=== PATIENT | male | born 1980 | race Caucasian/White ===

== ENCOUNTER 2017-02-19 03:17 | Inpatient (IN) | payer MEDICAID, OTHER ==
[~2017-02-19] VITALS: Ht 180.3 cm; Wt 74.0 kg
[2017-02-19 03:35] VITALS: BP 117/65; PULSE 88; RESP 18; TEMP 97.5; O2SAT 98
[2017-02-19] MEDS ORDERED: diphenhydrAMINE HCL 50 MG CAP PO PRN (06:00)
[2017-02-19] MEDS ORDERED: hydrOXYzine HCL 50 MG TAB PO PRN (06:00)
[2017-02-19] MEDS ORDERED: MAGNESIUM HYDROXIDE SUSP 30 ML CUP PO PRN (06:00)
[2017-02-19] MEDS ORDERED: ALUMINUM/MAGNESIUM/SIMETH 30 ML CUP PO PRN (06:00)
[2017-02-19] MEDS ORDERED: diphenhydrAMINE HCL 50 MG/ML VIAL IM PRN (06:00)
[2017-02-19] MEDS: ACETAMINOPHEN 325 MG TAB PO PRN ×2 (08:42→12:15)
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
[2017-02-19] MEDS ORDERED: REMOVE OLD NICOTINE PATCH T-DERMAL SCH (21:00)
[2017-02-20] MEDS ORDERED: NICOTINE 21 MG/24 HR PATCH T-DERMAL SCH (10:00)
== END 2017-02-19 12:45 | disposition home or self-care (01) | DRG 881 ==
LOC: H270 03:30 → EDSTATUS 03:38
PROVIDERS: ADMIT Psychiatry & Neurology Psychiatry; ATTEND Psychiatry & Neurology Psychiatry
DX: F43.21 Adjustment disorder with depressed mood (principal); R45.851 Suicidal ideations; F31.9 Bipolar disorder, unspecified; F19.10 Other psychoactive substance abuse, uncomplicated; Z59.0 Homelessness; Z91.5 Personal history of self-harm